=== PATIENT | male | born 1980 | race Caucasian/White ===

== ENCOUNTER 2017-05-28 23:08 | Emergency (ER) | payer OTHER ==
[~2017-05-28] VITALS: Ht 175.3 cm; Wt 77.3 kg
[2017-05-28 23:12] VITALS: BP 124/88; PULSE 70; RESP 16; O2SAT 100
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
[2017-05-28] MEDS ORDERED: 0.9% Sodium Chloride 1,000 ML IV ONE (23:55)
[2017-05-28] MEDS ORDERED: Pantoprazole 40 mg ER24 Tablet PO ONE (23:55)
[2017-05-28] MEDS ORDERED: Alum-Mag Hydrox-Simeth 30 mL Suspension PO ONE (23:55)
[2017-05-29 00:48] LABS: BASOPHILS % (AUTO) 0.4 % (0-3); EOSINOPHILS % (AUTO) 1.6 % (0-5); MONOCYTES % (AUTO) 8.2 % (4-12); Mean Corpuscular Hemoglobin 29.5 pg (27.0-35.0); Mean Corpuscular Volume 79.1 fL (81-100); NEUTROPHILS % (AUTO) 52.7 % (40-74); Platelet Count 191 bil/L (150-400)
[2017-05-29 00:59] LABS: APPEARANCE,URINE CLEAR (CLEAR,HAZY); COLOR,URINE YELLOW (YELLOW); OCCULT BLOOD,URINE NEGATIVE (NEGATIVE); UROBILINOGEN,URINE NORMAL (NORMAL)
[2017-05-29 01:08] VITALS: BP 117/81; PULSE 68; RESP 16; O2SAT 99
[2017-05-29] MEDS ORDERED: _Ondansetron ODT 4 mg Tablet PO PRN (01:40)
[2017-05-29] MEDS ORDERED: Ondansetron 2 mg/mL 2 mL Inj IVPUSH ONE (01:40)
[2017-05-29] MEDS ORDERED: OMEP20TA86 PO (02:13)
[2017-05-29 02:26] VITALS: BP 120/82; PULSE 66; RESP 16; O2SAT 99
== END 2017-05-29 02:23 | disposition home or self-care (01) ==
LOC: SED 23:08
DX: K29.20 Alcoholic gastritis without bleeding (principal); K20.9 Esophagitis, unspecified; K21.9 Gastro-esophageal reflux disease without esophagitis; Z88.1 Allergy status to other antibiotic agents
CPT/HCPCS: 36415; 80053; 81000; 83690; 83735; 85025; 93005; 96374; 99285; J2405; J7030